=== PATIENT | male | born 1970 | race African-American/Black ===

== ENCOUNTER 2016-03-26 09:03 | Emergency (ER) | payer BC ==
[~2016-03-26] VITALS: Ht 177.8 cm; Wt 113.4 kg
[2016-03-26] MEDS ORDERED: LOSARTAN POTASS50 MG ORAL (09:18)
--- NOTE | 2016-03-26 09:43 | Emergency Room Report ---
History of Present Illness General Chief Complaint: Chest Pain Source: Patient Present Illness HPI 46 YO M with HTN on Losartan presents with substernal 7/10 chest pain, sharp, radiating to left jaw, shoulders while sitting at home watching TV. Took ASA which resolved pain. Patient asymptomatic in ED. Never had before. Deneis history of AMI or PE in self, family. Denies smoking, ETOH, drug use, leg pain/ swelling. Denies pleuritic component of pain. Endorses strong history of anxiety, specific life stressors lately. Allergies: Coded Allergies: No Known Allergies (Unverified , 03/26/16) Patient History Past Medical History: HTN Past Surgical History: none Pertinent Family History: none Social History: Denies: alcohol use, drug use, smoking Immunizations: UTD Reviewed Nursing Documentation: PMH: Agreed, PSxH: Agreed Nursing Documentation-PMH Past Medical History: No History, Except For Hx Hypertension: Yes History Of Psychiatric Problem: Yes - Anxiety Review of Systems All Other Systems: negative except mentioned in HPI Physical Exam Vital Signs Date Time Temp Pulse Resp B/P Pulse Ox O2 Delivery O2 Flow Rate FiO2 03/26/16 09:14 98.4 101 14 154/94 97 Room Air Sp02 EP Interpretation: reviewed, normal General Appearance: normal inspection, well appearing, no apparent distress, alert Head: atraumatic ENT: normal ENT inspection, hearing grossly normal, normal voice Neck: normal inspection, full range of motion, supple, no bony tend Respiratory: normal inspection, lungs clear, normal breath sounds, no respiratory distress, no retraction, no wheezing Cardiovascular #1: normal peripheral pulses, regular rate, rhythm, no edema Gastrointestinal: normal inspection, normal bowel sounds, non tender, soft, no guarding, no hernia Genitourinary: no CVA tenderness Musculoskeletal: normal inspection, back normal, normal range of motion, Ash' s Sign negative Neurologic: normal inspection, alert, oriented x3, responsive, cardiac cath technologist III-XII nml as tested, motor strength/tone normal, speech normal Psychiatric: normal inspection, judgement/insight normal, mood/affect normal Skin: normal inspection, normal color, no rash Medical Decision Making Diagnostic Impression: Primary Impression: Chest pain Qualified Codes: R07.89 - Other chest pain Additional Impression: SOLE (acute kidney injury) ER Course 46 YO M with PMHx of HTN with left sided radiating chest pain. VSS. Afebrile. CXR negative for PNA, PTX, cardiomegaly ECG is NSR, no ischemia. No LVH. Labs: Normal H&H stable. No leuks. Troponin 0. SerumCr 1.6. Mild elevated CK but normal CKMB% HEART Score 2 for AGE and history of HTN. Low risk AMI, 1.7% of MACE per original HEART study and validation study. Mild SOLE. Patient denies history of CKD. Appears well hydrated; drinks plenty of water. Has PMD followup sched next month. Gave copy of labs to recheck and compare Advised PMD followup understands to return for worsening symptoms EKG Diagnostic Results Rate: normal Rhythm: NSR ST Segments: no acute changes ASA given to the pt in ED: No Rhythm Strip Diag. Results EP Interpretation: yes Rate: 95 Rhythm: NSR, no PVC's, no ectopy Chest X-Ray Diagnostic Results EP Interpretation: Yes Findings: no consolidation, no effusion, no pneumothorax, no acute cardiopulmonary disease Number of Views: 1 Last Vital Signs Date Time Temp Pulse Resp B/P Pulse Ox O2 Delivery O2 Flow Rate FiO2 03/26/16 09:15 101 14 Room Air 03/26/16 09:14 98.4 154/94 97 Status: improved Disposition: HOME, SELF-CARE Referrals: NON PHYSICIAN (PCP) BRANDON NICOLE M.D. Mar 26, 2016 09:43
[2016-03-26 09:49] LABS: BASOPHILS % (AUTO) 1.4 % (0.0-2.0); EOSINOPHILS % (AUTO) 0.3 % (0.0-3.0); LYMPHOCYTES % (AUTO) 52.6 % (20.0-45.0); MEAN CORPUSCULAR HEMOGLOBIN 23.1 PG (27.0-31.0); MEAN CORPUSCULAR VOLUME 72 FL (80-99); MONOCYTES % (AUTO) 5.4 % (1.0-10.0); NEUTROPHILS % (AUTO) 40.4 % (45.0-75.0); PLATELET COUNT 200 K/UL (150-450); RED BLOOD COUNT 6.61 M/UL (4.70-6.10); RED CELL DISTRIBUTION WIDTH 12.5 % (11.6-14.8); WHITE BLOOD COUNT 6.1 K/UL (4.8-10.8)
[2016-03-26 09:54] LABS: ALANINE AMINOTRANSFERASE 18 U/L (3-41); ALBUMIN/GLOBULIN RATIO 1.3 (1.0-2.7); ANION GAP 14 (5-15); ASPARTATE AMINO TRANSFERASE 18 U/L (5-40); CALCIUM 9.5 mg/dL (8.6-10.2); CARBON DIOXIDE 27 mEQ/L (20-30); CHLORIDE 101 mEQ/L (98-107); CREATININE 1.3 mg/dL (0.7-1.2); GLOMERULAR FILTRATION RATE > 60 mL/min (>60); HEMOLYSIS 3; POTASSIUM 3.6 mEQ/L (3.4-4.9); SODIUM 142 mEQ/L (135-145); TOTAL PROTEIN 7.6 g/dL (6.6-8.7)
[2016-03-26 09:55] LABS: TROPONIN I < 0.30 ng/mL (<=0.30)
[2016-03-26 10:00] VITALS: BP 129/80
[2016-03-26 10:05] LABS: CKMB < 1.5 ng/mL (< 6.7)
[2016-03-26 10:20] VITALS: BP 129/80
--- NOTE | 2016-03-27 09:10 | Diagnostic Imaging Report ---
Indication: Shortness of breath Technique: One view of the chest Comparison: none Findings: Lungs and pleural spaces are clear. Heart size is normal. Impression: No acute process
--- NOTE | 2016-04-03 14:44 | Cardiology Report ---
APPROVED REPORT EKG Measurement Heart [id number] [place] [id number] Normal sinus rhythm Normal ECG
== END 2016-03-26 10:20 | disposition home or self-care (01) ==
LOC: EMR 09:05
DX: R07.89 Other chest pain (principal); N17.9 Acute kidney failure, unspecified; I10 Essential (primary) hypertension; F41.9 Anxiety disorder, unspecified
CPT/HCPCS: 36415; 71010; 80053; 82550; 82553; 84484; 85025; 93005; 99283